=== PATIENT | male | born 1965 | race Caucasian/White ===

== ENCOUNTER 2017-04-29 13:16 | Inpatient (IN) | payer MEDICAID, MEDICARE, OTHER, SELFPAY ==
[~2017-04-29] VITALS: Ht 170.2 cm; Wt 64.0 kg
[~2017-04-29 13:16] MED LIST: DIVA250T45 PO; DIVA500T52 PO; OLAN15TA2 PO; PARO20TA24 PO; PHENL PO; TRIH5TAB2 PO
[2017-04-29 14:06] LABS: BASOPHILS % (AUTO) 0.4 % (0.0-2.0); EOSINOPHILS % (AUTO) 2.3 % (1.0-6.0); HEMATOCRIT 40.5 % (41-53); LYMPHOCYTES # (AUTO) 1.1 K/uL (1.0-4.8); LYMPHOCYTES % (AUTO) 19.5 % (22.0-44.0); MEAN CORPUSCULAR HEMOGLOBIN 32.4 pg (26.0-34.0); MEAN CORPUSCULAR HGB CONC 34.6 G/dL (31.0-37.0); MEAN CORPUSCULAR VOLUME 94 fL (80-100); MONOCYTES # (AUTO) 0.4 K/uL (0.1-1.0); MONOCYTES % (AUTO) 6.7 % (2.0-9.0); NEUTROPHILS % (AUTO) 71.1 % (40.0-70.0); PLATELET COUNT (AUTO) 223 K/uL (150-450); RED BLOOD CELL COUNT(AUTO) 4.33 MIL/uL (4.50-5.90); RED CELL DISTRIBUTION WIDTH 13.6 % (11.5-14.5); WHITE BLOOD COUNT (AUTO) 5.6 K/uL (4.5-11.0)
[2017-04-29 14:16] LABS: ANION GAP 9 mmol/L (8-16); CALCIUM, TOTAL 8.7 mg/dL (8.8-10.5); CARBON DIOXIDE 26 mmol/L (22-29); CHLORIDE 107 mmol/L (98-107); CREATININE 0.86 mg/dL (0.60-1.30); GLOMERULAR FILTR. RATE CALC > 60 mL/min (>60); POTASSIUM 3.9 mmol/L (3.5-5.1); SODIUM SERUM 142 mmol/L (136-145); UREA NITROGEN, BLOOD 18 mg/dL (7-18)
[2017-04-29 14:24] LABS: ALANINE AMINOTRANSFERASE 41 U/L (12-78); ALBUMIN 3.3 g/dL (3.4-5.0); ASPARTATE AMINOTRANSFERASE 26 U/L (15-37); BILIRUBIN,TOTAL 0.3 mg/dL (0.1-1.0); TOTAL PROTEIN, SERUM 6.8 g/dL (6.4-8.2)
[2017-04-29] MEDS ORDERED: OLANZapine 5 MG TABLET PO ONE (17:00)
[2017-04-29] MEDS ORDERED: LORazepam 2 MG TABLET PO ONE (17:00)
[2017-04-29] MEDS ORDERED: ZOLPIDEM TARTRATE 10 MG TABLET PO PRN (17:15)
[2017-04-29 18:19] LABS: CHOL/HDL RATIO 3.7 (4.2-7.3)
[2017-04-29] MEDS ORDERED: PNEUMOCOCCAL VACCINE POLYVALENT 0.5 ML VIAL [PPSV23] IM ONE (19:00)
[2017-04-29 19:29] VITALS: BP 108/79
[2017-04-29] MEDS: TraZODone HCL 100 MG TABLET PO SCH (20:24)
[2017-04-29] MEDS: OLANZapine 10 MG TABLET PO SCH (20:26)
[2017-04-29] MEDS: DIVALPROEX SODIUM 250 MG ER TABLET PO SCH (20:27)
[2017-04-30 08:05] VITALS: BP 98/65
[2017-04-30] MEDS: PARoxetine HCL 20 MG TABLET PO SCH (08:12)
[2017-04-30] MEDS: LORazepam 2 MG TABLET PO PRN (10:51)
[2017-04-30 16:15] VITALS: BP 106/68
[2017-04-30] MEDS: OLANZapine 10 MG TABLET PO SCH (20:34)
[2017-04-30] MEDS: TraZODone HCL 100 MG TABLET PO SCH (20:34)
[2017-04-30] MEDS: DIVALPROEX SODIUM 250 MG ER TABLET PO SCH (20:34)
[2017-05-01 08:05] VITALS: BP 106/67
[2017-05-01] MEDS: PARoxetine HCL 20 MG TABLET PO SCH (08:06)
[2017-05-01] MEDS: LORazepam 2 MG TABLET PO PRN ×2 (09:32→16:07)
[2017-05-01] MEDS: GEMFIBROZIL 600 MG TABLET PO SCH (16:07)
[2017-05-01 16:15] VITALS: BP 107/73
[2017-05-01] MEDS: OLANZapine 10 MG TABLET PO SCH (20:08)
[2017-05-01] MEDS: TraZODone HCL 100 MG TABLET PO SCH (20:08)
[2017-05-01] MEDS: DIVALPROEX SODIUM 250 MG ER TABLET PO SCH (20:09)
[2017-05-02 09:00] VITALS: BP 103/70
[2017-05-02] MEDS: CHOLECALCIFEROL (VIT D3) 1,000 UNITS TABLET PO SCH (09:18)
[2017-05-02] MEDS: PARoxetine HCL 20 MG TABLET PO SCH (09:18)
[2017-05-02] MEDS: GEMFIBROZIL 600 MG TABLET PO SCH ×2 (09:19→16:06)
[2017-05-02] MEDS: HALOPERIDOL 5 MG TABLET PO PRN (09:19)
[2017-05-02] MEDS: LORazepam 2 MG TABLET PO PRN ×2 (09:58→16:21)
[2017-05-02 16:15] VITALS: BP 114/60
[2017-05-02] MEDS: DIVALPROEX SODIUM 250 MG ER TABLET PO SCH (20:09)
[2017-05-02] MEDS: OLANZapine 10 MG TABLET PO SCH (20:09)
[2017-05-02] MEDS: TraZODone HCL 100 MG TABLET PO SCH (20:10)
[2017-05-03] MEDS: HALOPERIDOL 5 MG TABLET PO PRN ×2 (09:26→13:30)
[2017-05-03] MEDS: GEMFIBROZIL 600 MG TABLET PO SCH ×2 (09:26→17:37)
[2017-05-03] MEDS: PARoxetine HCL 20 MG TABLET PO SCH (09:26)
[2017-05-03] MEDS: LORazepam 2 MG TABLET PO PRN ×2 (09:26→13:29)
[2017-05-03] MEDS: CHOLECALCIFEROL (VIT D3) 1,000 UNITS TABLET PO SCH (09:26)
[2017-05-03 09:42] VITALS: BP 103/73
[2017-05-03 16:00] VITALS: BP 110/70
[2017-05-03] MEDS: OLANZapine 10 MG TABLET PO SCH (20:57)
[2017-05-03] MEDS: TraZODone HCL 100 MG TABLET PO SCH (20:58)
[2017-05-03] MEDS: DIVALPROEX SODIUM 250 MG ER TABLET PO SCH (20:58)
[2017-05-04] MEDS: PARoxetine HCL 20 MG TABLET PO SCH (09:53)
[2017-05-04] MEDS: LORazepam 2 MG TABLET PO PRN ×2 (09:53→15:36)
[2017-05-04] MEDS: CHOLECALCIFEROL (VIT D3) 1,000 UNITS TABLET PO SCH (09:53)
[2017-05-04] MEDS: HALOPERIDOL 5 MG TABLET PO PRN ×2 (09:53→15:36)
[2017-05-04] MEDS: GEMFIBROZIL 600 MG TABLET PO SCH ×2 (09:53→16:27)
[2017-05-04 11:31] VITALS: BP 110/72
[2017-05-04 17:19] VITALS: BP 108/75
[2017-05-04] MEDS: DIVALPROEX SODIUM 250 MG ER TABLET PO SCH (20:02)
[2017-05-04] MEDS: TraZODone HCL 100 MG TABLET PO SCH (20:02)
[2017-05-04] MEDS: OLANZapine 10 MG TABLET PO SCH (20:03)
[2017-05-05 08:00] VITALS: BP 102/74
[2017-05-05] MEDS: LORazepam 2 MG TABLET PO PRN ×2 (08:08→14:09)
[2017-05-05] MEDS: PARoxetine HCL 20 MG TABLET PO SCH (08:08)
[2017-05-05] MEDS: CHOLECALCIFEROL (VIT D3) 1,000 UNITS TABLET PO SCH (08:08)
[2017-05-05] MEDS: GEMFIBROZIL 600 MG TABLET PO SCH ×2 (08:08→16:48)
[2017-05-05] MEDS: HALOPERIDOL 5 MG TABLET PO PRN (14:09)
[2017-05-05] MEDS ORDERED: OLAN10TA3 PO (14:15)
[2017-05-05] MEDS ORDERED: TRAZ-147 PO (14:18)
[2017-05-05] MEDS ORDERED: GEMF600T3 PO (14:20)
[2017-05-05] MEDS ORDERED: VITAD1000 PO (14:20)
== END 2017-05-05 17:05 | disposition home or self-care (01) | DRG 885 ==
LOC: EMS 13:18 → 3EX 18:09
DX: F25.1 Schizoaffective disorder, depressive type (principal); R45.851 Suicidal ideations; G40.909 Epilepsy, unspecified, not intractable, without status epilepticus; E78.00 Pure hypercholesterolemia, unspecified; J44.9 Chronic obstructive pulmonary disease, unspecified; E78.5 Hyperlipidemia, unspecified; I10 Essential (primary) hypertension; G62.9 Polyneuropathy, unspecified; F17.210 Nicotine dependence, cigarettes, uncomplicated; E78.1 Pure hyperglyceridemia; K21.9 Gastro-esophageal reflux disease without esophagitis; B19.20 Unspecified viral hepatitis C without hepatic coma; Z88.2 Allergy status to sulfonamides; Z88.8 Allergy status to other drugs, medicaments and biological substances; Z91.013 Allergy to seafood; Z91.5 Personal history of self-harm; Z28.21 Immunization not carried out because of patient refusal
CPT/HCPCS: 99285; G0480

== ENCOUNTER 2017-10-04 19:59 | Inpatient (IN) | payer MEDICARE, OTHER ==
[~2017-10-04] VITALS: Ht 170.2 cm; Wt 60.3 kg
[~2017-10-04 19:59] MED LIST changes: +GEMF600T3 PO; +OLAN10TA3 PO; -OLAN15TA2 PO; -PHENL PO; +TRAZ-147 PO; -TRIH5TAB2 PO; +VITAD1000 PO
[2017-10-04] MEDS ORDERED: ATOR20TA86 PO (20:40)
[2017-10-04] MEDS ORDERED: PHENY100 PO (20:40)
[2017-10-04] MEDS ORDERED: OLAN7.5T2 PO (20:40)
[2017-10-04] MEDS ORDERED: GABA-529 PO (20:40)
[2017-10-04] MEDS ORDERED: PANT40TA25 PO (20:40)
[2017-10-04] MEDS ORDERED: DIPH25 PO (20:40)
[2017-10-04] MEDS ORDERED: ACYC200C PO (20:40)
[2017-10-04] MEDS ORDERED: OXYC-530 PO (20:40)
[2017-10-04 20:58] LABS: BASOPHILS % (AUTO) 0.8 % (0.0-2.0); EOSINOPHILS % (AUTO) 4.7 % (1.0-6.0); HEMATOCRIT 43.4 % (41-53); HEMOGLOBIN 14.8 g/dL (13.5-17.5); LYMPHOCYTES # (AUTO) 1.4 K/uL (1.0-4.8); LYMPHOCYTES % (AUTO) 29.2 % (22.0-44.0); MEAN CORPUSCULAR HEMOGLOBIN 31.8 pg (26.0-34.0); MEAN CORPUSCULAR HGB CONC 34.1 G/dL (31.0-37.0); MEAN CORPUSCULAR VOLUME 93 fL (80-100); MONOCYTES # (AUTO) 0.4 K/uL (0.1-1.0); MONOCYTES % (AUTO) 9.4 % (2.0-9.0); NEUTROPHILS # (AUTO) 2.6 K/uL (1.8-7.7); NEUTROPHILS % (AUTO) 55.9 % (40.0-70.0); PLATELET COUNT (AUTO) 259 K/uL (150-450); RED BLOOD CELL COUNT(AUTO) 4.65 MIL/uL (4.50-5.90); RED CELL DISTRIBUTION WIDTH 13.3 % (11.5-14.5)
[2017-10-04 21:12] LABS: ALANINE AMINOTRANSFERASE 50 U/L (12-78); ALBUMIN 3.6 g/dL (3.4-5.0); ALKALINE PHOSPHATASE 102 U/L (46-116); ANION GAP 10 mmol/L (8-16); ASPARTATE AMINOTRANSFERASE 45 U/L (15-37); BILIRUBIN,TOTAL 0.2 mg/dL (0.1-1.0); CALCIUM, TOTAL 9.1 mg/dL (8.8-10.5); CARBON DIOXIDE 26 mmol/L (22-29); CHLORIDE 106 mmol/L (98-107); CREATININE 0.98 mg/dL (0.60-1.30); GLOMERULAR FILTR. RATE CALC > 60 mL/min (>60); GLUCOSE,RANDOM 84 mg/dL (70-110); POTASSIUM 3.5 mmol/L (3.5-5.1); SODIUM SERUM 142 mmol/L (136-145)
[2017-10-04 21:27] LABS: UREA NITROGEN, BLOOD 25 mg/dL (7-18)
[2017-10-04 21:28] LABS: VALPROIC ACID < 3 mcg/mL (50-100)
[2017-10-04 21:49] LABS: AMPHET/METH SCREEN,URINE NEGATIVE (NEGATIVE); BARBITURATE SCREEN, URINE NEGATIVE (NEGATIVE); BENZODIAZEPINES SCREEN,URINE NEGATIVE (NEGATIVE); CANNABINOID SCREEN,URINE NEGATIVE (NEGATIVE); COCAINE SCREEN,URINE NEGATIVE (NEGATIVE); METHADONE SCREEN, URINE NEGATIVE (NEGATIVE); OPIATE SCREEN,URINE NEGATIVE (NEGATIVE)
[2017-10-04 21:50] LABS: PHENCYCLIDINE SCREEN,URINE NEGATIVE (NEGATIVE)
[2017-10-05] MEDS ORDERED: LORazepam 2 MG TABLET PO PRN (01:00)
[2017-10-05] MEDS ORDERED: ZOLPIDEM TARTRATE 10 MG TABLET PO PRN (01:00)
[2017-10-05] MEDS ORDERED: HALOPERIDOL 5 MG TABLET PO PRN (01:00)
[2017-10-05] MEDS ORDERED: BACITRACIN 0.9 GM PACKET OINTMENT TP ONE (01:00)
[2017-10-05 04:16] VITALS: BP 115/68
[2017-10-05] MEDS ORDERED: PNEUMOCOCCAL VACCINE POLYVALENT 0.5 ML VIAL [PPSV23] IM ONE (04:30)
[2017-10-05] MEDS ORDERED: INFLUENZA VIRUS VACCINE QVS 2017-18 (3YR+)/PF 60 MCG/0.5 ML SYRINGE IM ONE (04:30)
[2017-10-05 08:37] VITALS: BP 106/64
[2017-10-05 08:40] LABS: FREE T4 (FREE THYROXINE) 0.68 ng/dL (0.76-1.46); THYROID STIMULATING HORMONE 0.42 uIU/mL (0.36-3.74)
[2017-10-05] MEDS: PARoxetine HCL 20 MG TABLET PO SCH (12:54)
[2017-10-05] MEDS: GABAPENTIN 300 MG CAPSULE PO SCH ×2 (12:54→16:24)
[2017-10-05] MEDS: BACITRACIN 28.4 GM OINTMENT TP SCH ×2 (14:52→16:25)
[2017-10-05] MEDS ORDERED: ONDANSETRON HCL 4 MG TABLET PO PRN (15:30)
[2017-10-05] MEDS ORDERED: IBUPROFEN 600 MG TABLET PO PRN (15:30)
[2017-10-05] MEDS ORDERED: MAGNESIUM HYDROXIDE SUSPENSION 30 ML UDCUP PO PRN (15:30)
[2017-10-05] MEDS ORDERED: MAG HYDROX/AL HYDROX/SIMETH ES 30 ML SUSPENSION UDCUP PO PRN (15:30)
[2017-10-05] MEDS ORDERED: LOPERAMIDE HCL 2 MG CAPSULE PO PRN (15:30)
[2017-10-05] MEDS ORDERED: CloNIDine HCL 0.1 MG TABLET PO PRN (15:30)
[2017-10-05] MEDS ORDERED: PETROLATUM,WHITE 71 GM JELLY TP PRN (15:30)
[2017-10-05] MEDS ORDERED: BENZOCAINE/MENTHOL LOZENGE MM PRN (15:30)
[2017-10-05] MEDS ORDERED: BACITRACIN 28.4 GM OINTMENT TP PRN (15:30)
[2017-10-05] MEDS ORDERED: ACETAMINOPHEN 325 MG TABLET PO PRN (15:30)
[2017-10-05 16:40] VITALS: BP 101/59
[2017-10-05] MEDS: OLANZapine 7.5 MG TABLET PO SCH (20:15)
[2017-10-05] MEDS: PHENYTOIN SODIUM 100 MG ER CAPSULE PO SCH (20:15)
[2017-10-05] MEDS: TraZODone HCL 100 MG TABLET PO SCH (20:15)
[2017-10-06 06:07] VITALS: BP 108/68
[2017-10-06 08:37] VITALS: BP 135/67
[2017-10-06] MEDS: OMEPRAZOLE 20 MG CAPSULE PO SCH (08:41)
[2017-10-06] MEDS: PARoxetine HCL 20 MG TABLET PO SCH (08:41)
[2017-10-06] MEDS: GABAPENTIN 300 MG CAPSULE PO SCH ×3 (08:41→16:38)
[2017-10-06] MEDS: DOCUSATE SODIUM 100 MG CAPSULE PO SCH (08:41)
[2017-10-06] MEDS: BACITRACIN 28.4 GM OINTMENT TP SCH ×2 (08:42→16:38)
[2017-10-06 11:21] LABS: CHOL/HDL RATIO 4.2 (4.2-7.3); PHENYTOIN (DILANTIN) 3.9 mcg/mL (10.0-20.0)
[2017-10-06 16:10] VITALS: BP 103/61
[2017-10-06] MEDS: OLANZapine 7.5 MG TABLET PO SCH (20:27)
[2017-10-06] MEDS: TraZODone HCL 100 MG TABLET PO SCH (20:28)
[2017-10-06] MEDS: PHENYTOIN SODIUM 100 MG ER CAPSULE PO SCH (20:28)
[2017-10-07 05:49] VITALS: BP 102/62
[2017-10-07] MEDS: DOCUSATE SODIUM 100 MG CAPSULE PO SCH (08:27)
[2017-10-07] MEDS: PARoxetine HCL 20 MG TABLET PO SCH (08:27)
[2017-10-07] MEDS: OMEPRAZOLE 20 MG CAPSULE PO SCH (08:27)
[2017-10-07] MEDS: GABAPENTIN 300 MG CAPSULE PO SCH ×3 (08:27→16:09)
[2017-10-07] MEDS: BACITRACIN 28.4 GM OINTMENT TP SCH ×2 (08:28→16:09)
[2017-10-07 09:27] VITALS: BP 99/62
[2017-10-07 16:05] VITALS: BP 100/70
[2017-10-07 19:09] VITALS: BP 100/70
[2017-10-07] MEDS: TraZODone HCL 100 MG TABLET PO SCH (20:05)
[2017-10-07] MEDS: OLANZapine 7.5 MG TABLET PO SCH (20:05)
[2017-10-07] MEDS: SIMVASTATIN 10 MG TABLET PO SCH (20:05)
[2017-10-07] MEDS: PHENYTOIN SODIUM 100 MG ER CAPSULE PO SCH (20:05)
[2017-10-08 01:02] VITALS: BP 106/65
[2017-10-08 08:14] VITALS: BP 101/63
[2017-10-08] MEDS: PARoxetine HCL 20 MG TABLET PO SCH (08:20)
[2017-10-08] MEDS: GABAPENTIN 300 MG CAPSULE PO SCH ×3 (08:20→16:31)
[2017-10-08] MEDS: OMEPRAZOLE 20 MG CAPSULE PO SCH (08:20)
[2017-10-08] MEDS: BACITRACIN 28.4 GM OINTMENT TP SCH ×2 (08:20→16:31)
[2017-10-08] MEDS: DOCUSATE SODIUM 100 MG CAPSULE PO SCH (08:20)
[2017-10-08 16:40] VITALS: BP 99/64
[2017-10-08] MEDS: SIMVASTATIN 10 MG TABLET PO SCH (20:17)
[2017-10-08] MEDS: PHENYTOIN SODIUM 100 MG ER CAPSULE PO SCH (20:17)
[2017-10-08] MEDS: TraZODone HCL 100 MG TABLET PO SCH (20:17)
[2017-10-08] MEDS: OLANZapine 7.5 MG TABLET PO SCH (20:18)
[2017-10-09 06:16] VITALS: BP 100/65
[2017-10-09 08:38] VITALS: BP 100/69
[2017-10-09] MEDS: PARoxetine HCL 20 MG TABLET PO SCH (08:48)
[2017-10-09] MEDS: GABAPENTIN 300 MG CAPSULE PO SCH ×3 (08:48→16:14)
[2017-10-09] MEDS: OMEPRAZOLE 20 MG CAPSULE PO SCH (08:48)
[2017-10-09] MEDS: DOCUSATE SODIUM 100 MG CAPSULE PO SCH (08:48)
[2017-10-09] MEDS: BACITRACIN 28.4 GM OINTMENT TP SCH ×2 (08:48→16:14)
[2017-10-09 16:19] VITALS: BP 104/67
[2017-10-09] MEDS: TraZODone HCL 100 MG TABLET PO SCH (20:12)
[2017-10-09] MEDS: OLANZapine 7.5 MG TABLET PO SCH (20:12)
[2017-10-09] MEDS: SIMVASTATIN 10 MG TABLET PO SCH (20:12)
[2017-10-09] MEDS: PHENYTOIN SODIUM 100 MG ER CAPSULE PO SCH (20:12)
[2017-10-10 06:37] VITALS: BP 102/64
[2017-10-10 08:35] VITALS: BP 104/60
[2017-10-10] MEDS: DOCUSATE SODIUM 100 MG CAPSULE PO SCH (09:02)
[2017-10-10] MEDS: GABAPENTIN 300 MG CAPSULE PO SCH ×3 (09:02→16:35)
[2017-10-10] MEDS: PARoxetine HCL 20 MG TABLET PO SCH (09:02)
[2017-10-10] MEDS: OMEPRAZOLE 20 MG CAPSULE PO SCH (09:02)
[2017-10-10] MEDS: BACITRACIN 28.4 GM OINTMENT TP SCH ×2 (09:03→16:34)
[2017-10-10 16:16] VITALS: BP 107/63
[2017-10-10] MEDS: TraZODone HCL 100 MG TABLET PO SCH (20:40)
[2017-10-10] MEDS: SIMVASTATIN 10 MG TABLET PO SCH (20:40)
[2017-10-10] MEDS: OLANZapine 7.5 MG TABLET PO SCH (20:41)
[2017-10-10] MEDS: PHENYTOIN SODIUM 100 MG ER CAPSULE PO SCH (20:41)
[2017-10-11 06:38] VITALS: BP 107/64
[2017-10-11 08:14] VITALS: BP 106/68
[2017-10-11] MEDS: DOCUSATE SODIUM 100 MG CAPSULE PO SCH (08:36)
[2017-10-11] MEDS: GABAPENTIN 300 MG CAPSULE PO SCH ×2 (08:36→12:49)
[2017-10-11] MEDS: OMEPRAZOLE 20 MG CAPSULE PO SCH (08:36)
[2017-10-11] MEDS: PARoxetine HCL 20 MG TABLET PO SCH (08:36)
[2017-10-11] MEDS: BACITRACIN 28.4 GM OINTMENT TP SCH (08:37)
[2017-10-11] MEDS ORDERED: DSS100 PO (12:04)
[2017-10-11] MEDS ORDERED: PHEN100C23 PO (12:04)
[2017-10-11] MEDS ORDERED: SIMV-259 PO (12:04)
[2017-10-11] MEDS ORDERED: TRAZ-147 PO (12:04)
[2017-10-11] MEDS ORDERED: OMEP20 PO (12:05)
== END 2017-10-11 13:55 | disposition home or self-care (01) | DRG 885 ==
LOC: EMS 20:02 → B2X 10-05 01:27
DX: F25.1 Schizoaffective disorder, depressive type (principal); R45.851 Suicidal ideations; G62.9 Polyneuropathy, unspecified; W19.XXXA Unspecified fall, initial encounter; G40.909 Epilepsy, unspecified, not intractable, without status epilepticus; E78.00 Pure hypercholesterolemia, unspecified; E78.5 Hyperlipidemia, unspecified; J44.9 Chronic obstructive pulmonary disease, unspecified; K21.9 Gastro-esophageal reflux disease without esophagitis; S80.211A Abrasion, right knee, initial encounter; Z87.891 Personal history of nicotine dependence; Z91.5 Personal history of self-harm; Z88.2 Allergy status to sulfonamides; Z88.8 Allergy status to other drugs, medicaments and biological substances; E55.9 Vitamin D deficiency, unspecified; B19.20 Unspecified viral hepatitis C without hepatic coma; Z91.013 Allergy to seafood; Z28.21 Immunization not carried out because of patient refusal
CPT/HCPCS: 82306; 84439; 84443; 99285; G0480

== ENCOUNTER 2017-10-22 16:01 | Emergency (ER) | payer MEDICARE, OTHER, SELFPAY ==
[~2017-10-22] VITALS: Ht 170.2 cm; Wt 65.9 kg
[~2017-10-22 16:01] MED LIST changes: -DIVA250T45 PO; -DIVA500T52 PO; +DSS100 PO; +GABA-529 PO; -GEMF600T3 PO; -OLAN10TA3 PO; +OLAN7.5T2 PO; +OMEP20 PO; +PHEN100C23 PO; +SIMV-259 PO; -VITAD1000 PO
[2017-10-22 16:33] LABS: AMPHET/METH SCREEN,URINE NEGATIVE (NEGATIVE); BARBITURATE SCREEN, URINE NEGATIVE (NEGATIVE); BENZODIAZEPINES SCREEN,URINE NEGATIVE (NEGATIVE); CANNABINOID SCREEN,URINE NEGATIVE (NEGATIVE); COCAINE SCREEN,URINE NEGATIVE (NEGATIVE); METHADONE SCREEN, URINE NEGATIVE (NEGATIVE); OPIATE SCREEN,URINE NEGATIVE (NEGATIVE); PHENCYCLIDINE SCREEN,URINE NEGATIVE (NEGATIVE)
[2017-10-22 16:51] LABS: BASOPHILS # (AUTO) 0.03 K/uL (0.00-0.20); EOSINOPHILS # (AUTO) 0.21 K/uL (0.00-0.70); EOSINOPHILS % (AUTO) 7.09 % (1.0-6.0); HEMATOCRIT 40.9 % (41-53); HEMOGLOBIN 13.8 g/dL (13.5-17.5); LYMPHOCYTES % (AUTO) 32.2 % (22.0-44.0); MEAN CORPUSCULAR HGB CONC 33.8 G/dL (31.0-37.0); MEAN CORPUSCULAR VOLUME 94 fL (80-100); MONOCYTES # (AUTO) 0.3 K/uL (0.1-1.0); MONOCYTES % (AUTO) 10.4 % (2.0-9.0); NEUTROPHILS # (AUTO) 1.5 K/uL (1.8-7.7); NEUTROPHILS % (AUTO) 49.4 % (40.0-70.0); PLATELET COUNT (AUTO) 242 K/uL (150-450); RED BLOOD CELL COUNT(AUTO) 4.33 MIL/uL (4.50-5.90)
[2017-10-22 17:00] LABS: ANION GAP 9 mmol/L (8-16); CARBON DIOXIDE 25 mmol/L (22-29); CHLORIDE 108 mmol/L (98-107); CREATININE 1.06 mg/dL (0.60-1.30); GLOMERULAR FILTR. RATE CALC > 60 mL/min (>60); GLUCOSE,RANDOM 99 mg/dL (70-110); POTASSIUM 3.6 mmol/L (3.5-5.1); SODIUM SERUM 142 mmol/L (136-145); UREA NITROGEN, BLOOD 14 mg/dL (7-18)
[2017-10-22 17:06] LABS: ALANINE AMINOTRANSFERASE 37 U/L (12-78); ALBUMIN 3.4 g/dL (3.4-5.0); ALKALINE PHOSPHATASE 99 U/L (46-116); ASPARTATE AMINOTRANSFERASE 25 U/L (15-37); BILIRUBIN,TOTAL 0.1 mg/dL (0.1-1.0); TOTAL PROTEIN, SERUM 7.1 g/dL (6.4-8.2)
[2017-10-22] MEDS ORDERED: OLANZapine 5 MG TABLET PO ONE (20:00)
[2017-10-22 20:52] VITALS: BP 122/73
== END 2017-10-22 20:55 | disposition home or self-care (01) ==
LOC: EMS 16:03
DX: F25.9 Schizoaffective disorder, unspecified (principal); R45.851 Suicidal ideations; J44.9 Chronic obstructive pulmonary disease, unspecified; E78.00 Pure hypercholesterolemia, unspecified; F17.210 Nicotine dependence, cigarettes, uncomplicated; Z98.890 Other specified postprocedural states; Z91.013 Allergy to seafood; Z88.8 Allergy status to other drugs, medicaments and biological substances; Z88.2 Allergy status to sulfonamides; Z79.899 Other long term (current) drug therapy
CPT/HCPCS: 36415; 80053; 80307; 85025; 99284; G0480

== ENCOUNTER 2017-11-19 12:42 | Inpatient (IN) | payer MEDICARE, OTHER, SELFPAY ==
[~2017-11-19] VITALS: Ht 170.2 cm; Wt 61.7 kg
[2017-11-19] MEDS ORDERED: DIVA250T25 PO (13:29)
[2017-11-19 14:01] LABS: AMPHET/METH SCREEN,URINE POSITIVE (NEGATIVE); BARBITURATE SCREEN, URINE NEGATIVE (NEGATIVE); BENZODIAZEPINES SCREEN,URINE NEGATIVE (NEGATIVE); CANNABINOID SCREEN,URINE NEGATIVE (NEGATIVE); COCAINE SCREEN,URINE NEGATIVE (NEGATIVE); METHADONE SCREEN, URINE NEGATIVE (NEGATIVE); OPIATE SCREEN,URINE NEGATIVE (NEGATIVE)
[2017-11-19 14:02] LABS: PHENCYCLIDINE SCREEN,URINE NEGATIVE (NEGATIVE)
[2017-11-19 14:03] LABS: BASOPHILS % (AUTO) 0.7 % (0.0-2.0); EOSINOPHILS % (AUTO) 7.6 % (1.0-6.0); HEMOGLOBIN 14.7 g/dL (13.5-17.5); LYMPHOCYTES # (AUTO) 0.9 K/uL (1.0-4.8); MEAN CORPUSCULAR HEMOGLOBIN 31.5 pg (26.0-34.0); MEAN CORPUSCULAR HGB CONC 34.2 G/dL (31.0-37.0); MEAN CORPUSCULAR VOLUME 92 fL (80-100); MONOCYTES # (AUTO) 0.5 K/uL (0.1-1.0); MONOCYTES % (AUTO) 8.8 % (2.0-9.0); NEUTROPHILS # (AUTO) 3.6 K/uL (1.8-7.7); NEUTROPHILS % (AUTO) 65.9 % (40.0-70.0); PLATELET COUNT (AUTO) 199 K/uL (150-450); RED BLOOD CELL COUNT(AUTO) 4.66 MIL/uL (4.50-5.90)
[2017-11-19 14:15] LABS: ANION GAP 10 mmol/L (8-16); CALCIUM, TOTAL 9.1 mg/dL (8.8-10.5); CARBON DIOXIDE 28 mmol/L (22-29); CHLORIDE 106 mmol/L (98-107); CREATININE 1.01 mg/dL (0.60-1.30); GLOMERULAR FILTR. RATE CALC > 60 mL/min (>60); GLUCOSE,RANDOM 84 mg/dL (70-110); POTASSIUM 3.3 mmol/L (3.5-5.1); SODIUM SERUM 144 mmol/L (136-145); UREA NITROGEN, BLOOD 20 mg/dL (7-18)
[2017-11-19 14:21] LABS: ALANINE AMINOTRANSFERASE 47 U/L (12-78); ALBUMIN 3.7 g/dL (3.4-5.0); ALKALINE PHOSPHATASE 99 U/L (46-116); ASPARTATE AMINOTRANSFERASE 31 U/L (15-37); BILIRUBIN,TOTAL 0.3 mg/dL (0.1-1.0); TOTAL PROTEIN, SERUM 7.3 g/dL (6.4-8.2)
[2017-11-19] MEDS ORDERED: LORazepam 2 MG TABLET PO PRN (15:15)
[2017-11-19] MEDS ORDERED: HALOPERIDOL 5 MG TABLET PO PRN (15:15)
[2017-11-19] MEDS ORDERED: ZOLPIDEM TARTRATE 10 MG TABLET PO PRN (15:15)
[2017-11-19 18:17] VITALS: BP 133/68
[2017-11-19] MEDS ORDERED: POTASSIUM CHLORIDE 20 MEQ ER TABLET PO ONE (18:45)
[2017-11-19] MEDS: GABAPENTIN 300 MG CAPSULE PO SCH (18:50)
[2017-11-19] MEDS ORDERED: INFLUENZA VIRUS VACCINE QVS 2017-18 (3YR+)/PF 60 MCG/0.5 ML SYRINGE IM ONE (19:15)
[2017-11-19] MEDS ORDERED: -PHARMACY VACCINE NOTE- MISC ONE (19:15)
[2017-11-19] MEDS ORDERED: DiphenhydrAMINE HCL 25 MG CAPSULE PO ONE (19:54)
[2017-11-19] MEDS: PHENYTOIN SODIUM 100 MG ER CAPSULE PO SCH (20:53)
[2017-11-19] MEDS: SIMVASTATIN 10 MG TABLET PO SCH (20:54)
[2017-11-19] MEDS: OLANZapine 7.5 MG TABLET PO SCH (20:54)
[2017-11-19] MEDS: TraZODone HCL 100 MG TABLET PO SCH (20:54)
[2017-11-20 01:29] VITALS: BP 101/62
[2017-11-20 08:20] LABS: FREE T4 (FREE THYROXINE) 0.58 ng/dL (0.76-1.46); PHENYTOIN (DILANTIN) 17.2 mcg/mL (10.0-20.0); THYROID STIMULATING HORMONE 1.85 uIU/mL (0.36-3.74)
[2017-11-20 08:30] VITALS: BP 101/68
[2017-11-20] MEDS: OMEPRAZOLE 20 MG CAPSULE PO SCH (08:42)
[2017-11-20] MEDS: GABAPENTIN 300 MG CAPSULE PO SCH ×3 (08:42→16:02)
[2017-11-20] MEDS: PARoxetine HCL 20 MG TABLET PO SCH (08:42)
[2017-11-20 16:15] VITALS: BP 107/61
[2017-11-20] MEDS: PHENYTOIN SODIUM 100 MG ER CAPSULE PO SCH (20:15)
[2017-11-20] MEDS: OLANZapine 7.5 MG TABLET PO SCH (20:16)
[2017-11-20] MEDS: TraZODone HCL 100 MG TABLET PO SCH (20:16)
[2017-11-20] MEDS: SIMVASTATIN 10 MG TABLET PO SCH (20:16)
[2017-11-21 00:37] VITALS: BP 100/65
[2017-11-21 08:02] VITALS: BP 113/75
[2017-11-21] MEDS: GABAPENTIN 300 MG CAPSULE PO SCH ×3 (08:30→16:56)
[2017-11-21] MEDS: PARoxetine HCL 20 MG TABLET PO SCH (08:31)
[2017-11-21] MEDS: OMEPRAZOLE 20 MG CAPSULE PO SCH (08:31)
[2017-11-21] MEDS ORDERED: MAG HYDROX/AL HYDROX/SIMETH ES 30 ML SUSPENSION UDCUP PO PRN (09:45)
[2017-11-21] MEDS ORDERED: IBUPROFEN 600 MG TABLET PO PRN (09:45)
[2017-11-21] MEDS ORDERED: ACETAMINOPHEN 325 MG TABLET PO PRN (09:45)
[2017-11-21] MEDS ORDERED: CloNIDine HCL 0.1 MG TABLET PO PRN (09:45)
[2017-11-21] MEDS ORDERED: MAGNESIUM HYDROXIDE SUSPENSION 30 ML UDCUP PO PRN (09:45)
[2017-11-21] MEDS ORDERED: ONDANSETRON HCL 4 MG TABLET PO PRN (09:45)
[2017-11-21] MEDS ORDERED: BENZOCAINE/MENTHOL LOZENGE MM PRN (09:45)
[2017-11-21] MEDS ORDERED: BACITRACIN 28.4 GM OINTMENT TP PRN (09:45)
[2017-11-21] MEDS ORDERED: PETROLATUM,WHITE 71 GM JELLY TP PRN (09:45)
[2017-11-21] MEDS ORDERED: LOPERAMIDE HCL 2 MG CAPSULE PO PRN (09:45)
[2017-11-21 16:44] VITALS: BP 115/68
[2017-11-21] MEDS: TraZODone HCL 100 MG TABLET PO SCH (20:32)
[2017-11-21] MEDS: PHENYTOIN SODIUM 100 MG ER CAPSULE PO SCH (20:32)
[2017-11-21] MEDS: SIMVASTATIN 10 MG TABLET PO SCH (20:32)
[2017-11-21] MEDS: OLANZapine 7.5 MG TABLET PO SCH (20:32)
[2017-11-22 01:12] VITALS: BP 100/60
[2017-11-22 08:15] VITALS: BP 113/75
[2017-11-22] MEDS: OMEPRAZOLE 20 MG CAPSULE PO SCH (08:43)
[2017-11-22] MEDS: PARoxetine HCL 20 MG TABLET PO SCH (08:43)
[2017-11-22] MEDS: GABAPENTIN 300 MG CAPSULE PO SCH ×3 (08:43→16:45)
[2017-11-22 16:02] VITALS: BP 135/79
[2017-11-22] MEDS: SIMVASTATIN 10 MG TABLET PO SCH (20:36)
[2017-11-22] MEDS: OLANZapine 7.5 MG TABLET PO SCH (20:36)
[2017-11-22] MEDS: PHENYTOIN SODIUM 100 MG ER CAPSULE PO SCH (20:36)
[2017-11-22] MEDS: TraZODone HCL 100 MG TABLET PO SCH (20:36)
[2017-11-23 00:15] VITALS: BP 101/62
[2017-11-23 08:09] VITALS: BP 106/71
[2017-11-23] MEDS: OMEPRAZOLE 20 MG CAPSULE PO SCH (08:15)
[2017-11-23] MEDS: PARoxetine HCL 20 MG TABLET PO SCH (08:15)
[2017-11-23] MEDS: GABAPENTIN 300 MG CAPSULE PO SCH ×3 (08:15→16:16)
[2017-11-23 16:33] VITALS: BP 110/68
[2017-11-23] MEDS: PHENYTOIN SODIUM 100 MG ER CAPSULE PO SCH (20:23)
[2017-11-23] MEDS: SIMVASTATIN 10 MG TABLET PO SCH (20:23)
[2017-11-23] MEDS: TraZODone HCL 100 MG TABLET PO SCH (20:24)
[2017-11-23] MEDS: OLANZapine 7.5 MG TABLET PO SCH (20:24)
[2017-11-24 01:13] VITALS: BP 113/63
[2017-11-24 08:30] VITALS: BP 104/67
[2017-11-24] MEDS: OMEPRAZOLE 20 MG CAPSULE PO SCH (08:56)
[2017-11-24] MEDS: PARoxetine HCL 20 MG TABLET PO SCH (08:56)
[2017-11-24] MEDS: GABAPENTIN 300 MG CAPSULE PO SCH ×3 (08:56→16:20)
[2017-11-24 16:07] VITALS: BP 124/74
[2017-11-24] MEDS: TraZODone HCL 100 MG TABLET PO SCH (20:18)
[2017-11-24] MEDS: OLANZapine 7.5 MG TABLET PO SCH (20:18)
[2017-11-24] MEDS: SIMVASTATIN 10 MG TABLET PO SCH (20:18)
[2017-11-24] MEDS: PHENYTOIN SODIUM 100 MG ER CAPSULE PO SCH (20:18)
[2017-11-25 01:00] VITALS: BP 102/68
[2017-11-25] MEDS ORDERED: PARO20TA24 PO (08:01)
[2017-11-25 08:13] VITALS: BP 107/71
[2017-11-25] MEDS: OMEPRAZOLE 20 MG CAPSULE PO SCH (08:45)
[2017-11-25] MEDS: PARoxetine HCL 20 MG TABLET PO SCH (08:45)
[2017-11-25] MEDS: GABAPENTIN 300 MG CAPSULE PO SCH (08:45)
== END 2017-11-25 10:25 | disposition home or self-care (01) | DRG 885 ==
LOC: EMS 12:44 → B2X 15:30 → B2S 11-23 08:41
PROC: 3E0234Z Introduction of Serum, Toxoid and Vaccine into Muscle, Percutaneous Approach (ICD-10-PCS; principal; 2017-11-19)
DX: F25.1 Schizoaffective disorder, depressive type (principal); F15.20 Other stimulant dependence, uncomplicated; R45.851 Suicidal ideations; G40.909 Epilepsy, unspecified, not intractable, without status epilepticus; E78.00 Pure hypercholesterolemia, unspecified; E78.5 Hyperlipidemia, unspecified; E87.6 Hypokalemia; F17.200 Nicotine dependence, unspecified, uncomplicated; J44.9 Chronic obstructive pulmonary disease, unspecified; E55.9 Vitamin D deficiency, unspecified; B18.2 Chronic viral hepatitis C; R26.9 Unspecified abnormalities of gait and mobility; K21.9 Gastro-esophageal reflux disease without esophagitis; M19.90 Unspecified osteoarthritis, unspecified site; Z79.899 Other long term (current) drug therapy; Z91.14 Patient's other noncompliance with medication regimen; Z91.013 Allergy to seafood; Z88.2 Allergy status to sulfonamides; Z59.0 Homelessness; Z23 Encounter for immunization
CPT/HCPCS: 84132; 84439; 84443; 99285; G0480

== ENCOUNTER 2018-04-19 14:44 | Inpatient (IN) | payer OTHER, SELFPAY ==
[~2018-04-19] VITALS: Ht 170.2 cm; Wt 60.0 kg
[~2018-04-19 14:44] MED LIST changes: -DSS100 PO; -OMEP20 PO; -TRAZ-147 PO; +TRAZ-220 PO
[2018-04-19 15:50] LABS: HEMOGLOBIN 14.4 g/dL (13.5-17.5); LYMPHOCYTES # (AUTO) 1.3 K/uL (1.0-4.8); LYMPHOCYTES % (AUTO) 24.1 % (22.0-44.0); MEAN CORPUSCULAR HEMOGLOBIN 32.5 pg (26.0-34.0); MEAN CORPUSCULAR HGB CONC 34.3 G/dL (31.0-37.0); MEAN CORPUSCULAR VOLUME 95 fL (80-100); MONOCYTES # (AUTO) 0.5 K/uL (0.1-1.0); MONOCYTES % (AUTO) 9.9 % (2.0-9.0); NEUTROPHILS # (AUTO) 3.3 K/uL (1.8-7.7); PLATELET COUNT (AUTO) 214 K/uL (150-450); RED BLOOD CELL COUNT(AUTO) 4.43 MIL/uL (4.50-5.90); RED CELL DISTRIBUTION WIDTH 13.8 % (11.5-14.5)
[2018-04-19 16:01] LABS: ANION GAP 13 mmol/L (8-16); CALCIUM, TOTAL 8.2 mg/dL (8.8-10.5); CARBON DIOXIDE 17 mmol/L (22-29); CHLORIDE 109 mmol/L (98-107); CREATININE 1.17 mg/dL (0.60-1.30); GLOMERULAR FILTR. RATE CALC > 60 mL/min (>60); GLUCOSE,RANDOM 98 mg/dL (70-110); POTASSIUM 4.1 mmol/L (3.5-5.1); SODIUM SERUM 139 mmol/L (136-145); UREA NITROGEN, BLOOD 19 mg/dL (7-18)
[2018-04-19 16:07] LABS: ALANINE AMINOTRANSFERASE 40 U/L (12-78); ALBUMIN 3.8 g/dL (3.4-5.0); ALKALINE PHOSPHATASE 93 U/L (46-116); ASPARTATE AMINOTRANSFERASE 31 U/L (15-37); BILIRUBIN,TOTAL 0.1 mg/dL (0.1-1.0); TOTAL PROTEIN, SERUM 7.1 g/dL (6.4-8.2)
[2018-04-19 18:07] LABS: AMPHET/METH SCREEN,URINE POSITIVE (NEGATIVE); BARBITURATE SCREEN, URINE NEGATIVE (NEGATIVE); BENZODIAZEPINES SCREEN,URINE NEGATIVE (NEGATIVE); CANNABINOID SCREEN,URINE NEGATIVE (NEGATIVE); COCAINE SCREEN,URINE POSITIVE (NEGATIVE); METHADONE SCREEN, URINE NEGATIVE (NEGATIVE); OPIATE SCREEN,URINE NEGATIVE (NEGATIVE)
[2018-04-19 18:08] LABS: PHENCYCLIDINE SCREEN,URINE NEGATIVE (NEGATIVE)
[2018-04-19 21:34] LABS: PHENYTOIN (DILANTIN) 8.3 mcg/mL (10.0-20.0)
[2018-04-20] VITALS (8 sets, daily range): BP systolic 111–145; BP diastolic 64–88
[2018-04-20] MEDS ORDERED: ZOLPIDEM TARTRATE 10 MG TABLET PO PRN (00:15)
[2018-04-20] MEDS ORDERED: HALOPERIDOL 5 MG TABLET PO PRN (00:15)
[2018-04-20] MEDS ORDERED: LORazepam 2 MG TABLET PO PRN (00:15)
[2018-04-20] MEDS ORDERED: PNEUMOCOCCAL VACCINE POLYVALENT 0.5 ML VIAL [PPSV23] IM ONE (06:30)
[2018-04-20] MEDS ORDERED: CYANOCOBALAMIN 1,000 MCG/ML VIAL IM ONE (11:30)
[2018-04-20] MEDS ORDERED: OLANZapine 5 MG RAPDIS TABLET PO PRN (11:30)
[2018-04-20] MEDS ORDERED: TUBERCULIN, PURIFIED PROTEIN DERIVATIVE 5 TU/0.1 ML SYG ID ONE (11:30)
[2018-04-20] MEDS ORDERED: PROMETHAZINE HCL 25 MG TABLET PO PRN (11:30)
[2018-04-20] MEDS ORDERED: HydrOXYzine PAMOATE 50 MG CAPSULE PO PRN (11:30)
[2018-04-20] MEDS ORDERED: MAGNESIUM HYDROXIDE SUSPENSION 30 ML UDCUP PO PRN (11:30)
[2018-04-20] MEDS ORDERED: GuaiFENesin/D-METHORPHAN [SUGAR-FREE] 200-20MG/10 ML SYRUP UDCUP PO PRN (11:30)
[2018-04-20] MEDS ORDERED: ACETAMINOPHEN 325 MG TABLET PO PRN (11:30)
[2018-04-20] MEDS ORDERED: MAG HYDROX/AL HYDROX/SIMETH ES 30 ML SUSPENSION UDCUP PO PRN (11:30)
[2018-04-20] MEDS ORDERED: LOPERAMIDE HCL 2 MG CAPSULE PO PRN ×2 (11:30)
[2018-04-20] MEDS: GABAPENTIN 300 MG CAPSULE PO SCH ×3 (12:45→20:48)
[2018-04-20] MEDS: THIAMINE HCL 100 MG TABLET PO SCH (16:05)
[2018-04-20] MEDS ORDERED: DiphenhydrAMINE HCL 50 MG/ML VIAL IM ONE (16:45)
[2018-04-20] MEDS ORDERED: BENZTROPINE MESYLATE 2 MG TABLET PO ONE (16:45)
[2018-04-20] MEDS: BENZTROPINE MESYLATE 2 MG TABLET PO SCH (17:00)
[2018-04-20] MEDS: PHENYTOIN SODIUM 100 MG ER CAPSULE PO SCH (20:48)
[2018-04-20] MEDS: TraZODone HCL 50 MG TABLET PO SCH (20:48)
[2018-04-20] MEDS: OLANZapine 5 MG RAPDIS TABLET PO SCH (20:49)
[2018-04-20] MEDS: SIMVASTATIN 10 MG TABLET PO SCH (20:49)
[2018-04-21] VITALS (7 sets, daily range): BP systolic 105–125; BP diastolic 57–74
[2018-04-21 06:47] LABS: CHOL/HDL RATIO 4.8 (4.2-7.3)
[2018-04-21] MEDS: GABAPENTIN 300 MG CAPSULE PO SCH ×4 (08:32→20:20)
[2018-04-21] MEDS: NALTREXONE HCL 50 MG TABLET PO SCH (08:32)
[2018-04-21] MEDS: BENZTROPINE MESYLATE 2 MG TABLET PO SCH ×3 (08:32→16:50)
[2018-04-21] MEDS: MULTIVITAMINS WITH MINERALS, THERAPEUTIC TABLET PO SCH (08:32)
[2018-04-21] MEDS: FOLIC ACID 1 MG TABLET PO SCH (08:33)
[2018-04-21] MEDS: THIAMINE HCL 100 MG TABLET PO SCH ×2 (08:33→16:50)
[2018-04-21] MEDS: PHENYTOIN SODIUM 100 MG ER CAPSULE PO SCH (20:20)
[2018-04-21] MEDS: SIMVASTATIN 10 MG TABLET PO SCH (20:20)
[2018-04-21] MEDS: TraZODone HCL 50 MG TABLET PO SCH (20:20)
[2018-04-21] MEDS: OLANZapine 5 MG RAPDIS TABLET PO SCH (20:21)
[2018-04-22 06:40] VITALS: BP 106/59
[2018-04-22 06:41] VITALS: BP 106/59
[2018-04-22 08:15] VITALS: BP 120/67
[2018-04-22] MEDS: GABAPENTIN 300 MG CAPSULE PO SCH ×4 (08:15→20:16)
[2018-04-22] MEDS: FOLIC ACID 1 MG TABLET PO SCH (08:15)
[2018-04-22] MEDS: MULTIVITAMINS WITH MINERALS, THERAPEUTIC TABLET PO SCH (08:16)
[2018-04-22] MEDS: THIAMINE HCL 100 MG TABLET PO SCH ×2 (08:16→16:43)
[2018-04-22] MEDS: NALTREXONE HCL 50 MG TABLET PO SCH (08:16)
[2018-04-22 13:07] VITALS: BP 111/63
[2018-04-22] MEDS: BENZTROPINE MESYLATE 2 MG TABLET PO SCH (20:15)
[2018-04-22] MEDS: SIMVASTATIN 10 MG TABLET PO SCH (20:16)
[2018-04-22] MEDS: OLANZapine 5 MG RAPDIS TABLET PO SCH (20:16)
[2018-04-22] MEDS: PHENYTOIN SODIUM 100 MG ER CAPSULE PO SCH (20:16)
[2018-04-22] MEDS: TraZODone HCL 50 MG TABLET PO SCH (20:16)
[2018-04-22 21:01] VITALS: BP 101/58
[2018-04-22 21:02] VITALS: BP 101/58
[2018-04-23 05:44] VITALS: BP 103/68
[2018-04-23 09:00] VITALS: BP 93/44
[2018-04-23 09:04] VITALS: BP 93/44
[2018-04-23] MEDS: NALTREXONE HCL 50 MG TABLET PO SCH (10:25)
[2018-04-23] MEDS: THIAMINE HCL 100 MG TABLET PO SCH ×2 (10:25→16:25)
[2018-04-23] MEDS: GABAPENTIN 300 MG CAPSULE PO SCH ×4 (10:25→20:19)
[2018-04-23] MEDS: FOLIC ACID 1 MG TABLET PO SCH (10:25)
[2018-04-23] MEDS: MULTIVITAMINS WITH MINERALS, THERAPEUTIC TABLET PO SCH (10:27)
[2018-04-23 18:46] VITALS: BP 113/75
[2018-04-23 18:47] VITALS: BP 113/75
[2018-04-23] MEDS: PHENYTOIN SODIUM 100 MG ER CAPSULE PO SCH (20:19)
[2018-04-23] MEDS: BENZTROPINE MESYLATE 2 MG TABLET PO SCH (20:19)
[2018-04-23] MEDS: TraZODone HCL 50 MG TABLET PO SCH (20:19)
[2018-04-23] MEDS: SIMVASTATIN 10 MG TABLET PO SCH (20:19)
[2018-04-23] MEDS: OLANZapine 5 MG RAPDIS TABLET PO SCH (20:19)
[2018-04-24 06:11] VITALS: BP 98/71
[2018-04-24 08:11] VITALS: BP 115/78
[2018-04-24] MEDS: FOLIC ACID 1 MG TABLET PO SCH (08:22)
[2018-04-24] MEDS: GABAPENTIN 300 MG CAPSULE PO SCH ×4 (08:22→20:22)
[2018-04-24] MEDS: THIAMINE HCL 100 MG TABLET PO SCH ×2 (08:25→16:31)
[2018-04-24] MEDS: MULTIVITAMINS WITH MINERALS, THERAPEUTIC TABLET PO SCH (08:25)
[2018-04-24] MEDS: NALTREXONE HCL 50 MG TABLET PO SCH (08:25)
[2018-04-24 16:08] VITALS: BP 111/75
[2018-04-24 16:12] VITALS: BP 111/75
[2018-04-24] MEDS ORDERED: NALT50TA PO (16:17)
[2018-04-24] MEDS ORDERED: OLAN5TAB30 PO (16:17)
[2018-04-24] MEDS ORDERED: GABA-531 PO (16:17)
[2018-04-24] MEDS ORDERED: PHENY100 PO (16:17)
[2018-04-24] MEDS ORDERED: TRAZ-219 PO (16:17)
[2018-04-24] MEDS ORDERED: BENZ2TAB10 PO (16:17)
[2018-04-24] MEDS: TraZODone HCL 50 MG TABLET PO SCH (20:21)
[2018-04-24] MEDS: BENZTROPINE MESYLATE 2 MG TABLET PO SCH (20:21)
[2018-04-24] MEDS: PHENYTOIN SODIUM 100 MG ER CAPSULE PO SCH (20:22)
[2018-04-24] MEDS: OLANZapine 5 MG RAPDIS TABLET PO SCH (20:22)
[2018-04-24] MEDS: SIMVASTATIN 10 MG TABLET PO SCH (20:22)
[2018-04-25 06:10] VITALS: BP 107/74
[2018-04-25] MEDS: NALTREXONE HCL 50 MG TABLET PO SCH (08:10)
[2018-04-25] MEDS: FOLIC ACID 1 MG TABLET PO SCH (08:10)
[2018-04-25] MEDS: THIAMINE HCL 100 MG TABLET PO SCH (08:10)
[2018-04-25] MEDS: MULTIVITAMINS WITH MINERALS, THERAPEUTIC TABLET PO SCH (08:10)
[2018-04-25] MEDS: GABAPENTIN 300 MG CAPSULE PO SCH ×2 (08:10→12:07)
[2018-04-25 09:44] VITALS: BP 126/79
[2018-04-25] MEDS ORDERED: BENZ2TAB10 PO (10:35)
[2018-04-25] MEDS ORDERED: NALT50TA6 PO (10:38)
[2018-04-25] MEDS ORDERED: FOLI1 PO (10:39)
[2018-04-25] MEDS ORDERED: MULT-1239 PO (10:40)
[2018-04-25] MEDS ORDERED: THIA100T67 PO (10:40)
== END 2018-04-25 13:50 | disposition home or self-care (01) | DRG 885 ==
LOC: EMS 14:47 → 3EX 04-20 03:30
PROVIDERS: ADMIT Psychiatry & Neurology Psychiatry; ATTEND Psychiatry & Neurology Psychiatry
DX: F25.0 Schizoaffective disorder, bipolar type (principal); R45.851 Suicidal ideations; B19.20 Unspecified viral hepatitis C without hepatic coma; E78.00 Pure hypercholesterolemia, unspecified; E78.5 Hyperlipidemia, unspecified; F14.90 Cocaine use, unspecified, uncomplicated; F15.90 Other stimulant use, unspecified, uncomplicated; G47.00 Insomnia, unspecified; I10 Essential (primary) hypertension; J44.9 Chronic obstructive pulmonary disease, unspecified; R56.9 Unspecified convulsions; Z82.49 Family history of ischemic heart disease and other diseases of the circulatory system; Z87.11 Personal history of peptic ulcer disease; Z88.2 Allergy status to sulfonamides; Z91.19 Patient's noncompliance with other medical treatment and regimen; Z91.013 Allergy to seafood
CPT/HCPCS: 99285; G0480; J1200; J3420

== ENCOUNTER 2018-04-29 14:26 | Inpatient (IN) | payer MEDICARE, OTHER ==
[~2018-04-29] VITALS: Ht 170.2 cm; Wt 59.9 kg
[~2018-04-29 14:26] MED LIST changes: +BENZ2TAB10 PO; +FOLI1 PO; +GABA-531 PO; +MULT-1239 PO; +NALT50TA PO; +NALT50TA6 PO; +OLAN5TAB30 PO; -PARO20TA24 PO; +PHENY100 PO; +THIA100T67 PO; +TRAZ-219 PO
[2018-04-29 15:45] LABS: BASOPHILS % (AUTO) 1.9 % (0.0-2.0); EOSINOPHILS % (AUTO) 5.6 % (1.0-6.0); HEMATOCRIT 41.7 % (41-53); HEMOGLOBIN 14.4 g/dL (13.5-17.5); LYMPHOCYTES # (AUTO) 1.1 K/uL (1.0-4.8); MEAN CORPUSCULAR HEMOGLOBIN 32.6 pg (26.0-34.0); MEAN CORPUSCULAR HGB CONC 34.7 G/dL (31.0-37.0); MEAN CORPUSCULAR VOLUME 94 fL (80-100); MONOCYTES # (AUTO) 0.4 K/uL (0.1-1.0); MONOCYTES % (AUTO) 9.3 % (2.0-9.0); NEUTROPHILS % (AUTO) 53.2 % (40.0-70.0); PLATELET COUNT (AUTO) 189 K/uL (150-450); RED BLOOD CELL COUNT(AUTO) 4.44 MIL/uL (4.50-5.90); RED CELL DISTRIBUTION WIDTH 13.7 % (11.5-14.5)
[2018-04-29 15:55] LABS: ANION GAP 11 mmol/L (8-16); CALCIUM, TOTAL 8.4 mg/dL (8.8-10.5); CARBON DIOXIDE 25 mmol/L (22-29); CHLORIDE 108 mmol/L (98-107); CREATININE 1.12 mg/dL (0.60-1.30); GLOMERULAR FILTR. RATE CALC > 60 mL/min (>60); GLUCOSE,RANDOM 87 mg/dL (70-110); POTASSIUM 3.8 mmol/L (3.5-5.1); SODIUM SERUM 144 mmol/L (136-145); UREA NITROGEN, BLOOD 15 mg/dL (7-18)
[2018-04-29 16:01] LABS: ALANINE AMINOTRANSFERASE 56 U/L (12-78); ALBUMIN 3.7 g/dL (3.4-5.0); ALKALINE PHOSPHATASE 103 U/L (46-116); ASPARTATE AMINOTRANSFERASE 40 U/L (15-37); BILIRUBIN,TOTAL 0.3 mg/dL (0.1-1.0); TOTAL PROTEIN, SERUM 7.2 g/dL (6.4-8.2)
[2018-04-29 16:10] LABS: PHENYTOIN (DILANTIN) 23.4 mcg/mL (10.0-20.0)
[2018-04-29] MEDS ORDERED: HALOPERIDOL 5 MG TABLET PO PRN (20:45)
[2018-04-29] MEDS ORDERED: LORazepam 2 MG TABLET PO PRN (20:45)
[2018-04-29] MEDS ORDERED: ZOLPIDEM TARTRATE 10 MG TABLET PO PRN (20:45)
[2018-04-30 00:35] VITALS: BP 124/80
[2018-04-30] MEDS ORDERED: PNEUMOCOCCAL VACCINE POLYVALENT 0.5 ML VIAL [PPSV23] IM ONE (06:00)
[2018-04-30 08:09] VITALS: BP 112/69
[2018-04-30 08:24] LABS: CHOL/HDL RATIO 3.5 (4.2-7.3)
[2018-04-30] MEDS: GABAPENTIN 300 MG CAPSULE PO SCH ×4 (09:01→20:31)
[2018-04-30] MEDS: FOLIC ACID 1 MG TABLET PO SCH (09:01)
[2018-04-30] MEDS: THIAMINE HCL 100 MG TABLET PO SCH ×2 (09:01→16:28)
[2018-04-30] MEDS: MULTIVITAMINS WITH MINERALS, THERAPEUTIC TABLET PO SCH (09:01)
[2018-04-30] MEDS ORDERED: GABA-531 PO (14:31)
[2018-04-30 16:09] VITALS: BP 105/73
[2018-04-30] MEDS: SIMVASTATIN 10 MG TABLET PO SCH (20:31)
[2018-04-30] MEDS: TraZODone HCL 50 MG TABLET PO SCH (20:32)
[2018-04-30] MEDS: BENZTROPINE MESYLATE 2 MG TABLET PO SCH (20:32)
[2018-04-30] MEDS ORDERED: PHENYTOIN SODIUM 100 MG ER CAPSULE PO SCH (21:00)
[2018-04-30] MEDS ORDERED: OLANZapine 7.5 MG TABLET PO SCH (21:00)
[2018-04-30] MEDS ORDERED: TraZODone HCL 150 MG TABLET PO SCH (21:00)
[2018-05-01 00:39] VITALS: BP 91/61
[2018-05-01] MEDS: GABAPENTIN 300 MG CAPSULE PO SCH ×4 (08:22→21:18)
[2018-05-01] MEDS: PARoxetine HCL 20 MG TABLET PO SCH (08:22)
[2018-05-01] MEDS: MULTIVITAMINS WITH MINERALS, THERAPEUTIC TABLET PO SCH (08:22)
[2018-05-01] MEDS: PANTOPRAZOLE SODIUM 40 MG DR TABLET PO SCH (08:22)
[2018-05-01] MEDS: NALTREXONE HCL 50 MG TABLET PO SCH (08:22)
[2018-05-01] MEDS: THIAMINE HCL 100 MG TABLET PO SCH ×2 (08:22→17:21)
[2018-05-01] MEDS: FOLIC ACID 1 MG TABLET PO SCH (08:22)
[2018-05-01 08:46] VITALS: BP 108/73
[2018-05-01] MEDS ORDERED: MAG HYDROX/AL HYDROX/SIMETH ES 30 ML SUSPENSION UDCUP PO PRN (11:15)
[2018-05-01] MEDS ORDERED: LOPERAMIDE HCL 2 MG CAPSULE PO PRN (11:15)
[2018-05-01] MEDS ORDERED: ACETAMINOPHEN 325 MG TABLET PO PRN (11:15)
[2018-05-01] MEDS ORDERED: PROMETHAZINE HCL 25 MG TABLET PO PRN (11:15)
[2018-05-01] MEDS ORDERED: MAGNESIUM HYDROXIDE SUSPENSION 30 ML UDCUP PO PRN (11:15)
[2018-05-01 16:12] VITALS: BP 107/64
[2018-05-01] MEDS: PHENYTOIN SODIUM 100 MG ER CAPSULE PO SCH (21:16)
[2018-05-01] MEDS: TraZODone HCL 50 MG TABLET PO SCH (21:17)
[2018-05-01] MEDS: OLANZapine 10 MG TABLET PO SCH (21:17)
[2018-05-01] MEDS: BENZTROPINE MESYLATE 2 MG TABLET PO SCH (21:18)
[2018-05-01] MEDS: SIMVASTATIN 10 MG TABLET PO SCH (21:26)
[2018-05-02 06:42] VITALS: BP 104/61
[2018-05-02 08:10] VITALS: BP 104/74
[2018-05-02] MEDS: PANTOPRAZOLE SODIUM 40 MG DR TABLET PO SCH (08:55)
[2018-05-02] MEDS: MULTIVITAMINS WITH MINERALS, THERAPEUTIC TABLET PO SCH (08:55)
[2018-05-02] MEDS: GABAPENTIN 300 MG CAPSULE PO SCH ×4 (08:55→20:34)
[2018-05-02] MEDS: THIAMINE HCL 100 MG TABLET PO SCH ×2 (08:55→16:33)
[2018-05-02] MEDS: PARoxetine HCL 20 MG TABLET PO SCH (08:55)
[2018-05-02] MEDS: FOLIC ACID 1 MG TABLET PO SCH (08:55)
[2018-05-02] MEDS: NALTREXONE HCL 50 MG TABLET PO SCH (08:56)
[2018-05-02 16:14] VITALS: BP 110/71
[2018-05-02] MEDS: BENZTROPINE MESYLATE 2 MG TABLET PO SCH (20:34)
[2018-05-02] MEDS: TraZODone HCL 50 MG TABLET PO SCH (20:35)
[2018-05-02] MEDS: SIMVASTATIN 10 MG TABLET PO SCH (20:35)
[2018-05-02] MEDS: PHENYTOIN SODIUM 100 MG ER CAPSULE PO SCH (20:35)
[2018-05-02] MEDS: OLANZapine 10 MG TABLET PO SCH (20:36)
[2018-05-03 01:34] VITALS: BP 119/65
[2018-05-03 08:00] VITALS: BP 112/70
[2018-05-03] MEDS: GABAPENTIN 300 MG CAPSULE PO SCH ×4 (08:40→20:35)
[2018-05-03] MEDS: FOLIC ACID 1 MG TABLET PO SCH (08:40)
[2018-05-03] MEDS: PANTOPRAZOLE SODIUM 40 MG DR TABLET PO SCH (08:40)
[2018-05-03] MEDS: PARoxetine HCL 10 MG TABLET PO SCH (08:40)
[2018-05-03] MEDS: THIAMINE HCL 100 MG TABLET PO SCH ×2 (08:40→16:29)
[2018-05-03] MEDS: MULTIVITAMINS WITH MINERALS, THERAPEUTIC TABLET PO SCH (08:41)
[2018-05-03] MEDS: NALTREXONE HCL 50 MG TABLET PO SCH (08:41)
[2018-05-03] MEDS ORDERED: PHENY100 PO (16:06)
[2018-05-03] MEDS ORDERED: OLAN10TA20 PO (16:06)
[2018-05-03] MEDS ORDERED: TRAZ-219 PO (16:06)
[2018-05-03] MEDS ORDERED: NALT50TA PO (16:06)
[2018-05-03] MEDS ORDERED: PARO10TA71 PO (16:06)
[2018-05-03] MEDS ORDERED: BENZ2TAB10 PO (16:06)
[2018-05-03] MEDS ORDERED: GABA-531 PO (16:06)
[2018-05-03 16:08] VITALS: BP 103/63
[2018-05-03] MEDS: BENZTROPINE MESYLATE 2 MG TABLET PO SCH (20:35)
[2018-05-03] MEDS: OLANZapine 10 MG TABLET PO SCH (20:35)
[2018-05-03] MEDS: PHENYTOIN SODIUM 100 MG ER CAPSULE PO SCH (20:36)
[2018-05-03] MEDS: SIMVASTATIN 10 MG TABLET PO SCH (20:36)
[2018-05-03] MEDS: TraZODone HCL 50 MG TABLET PO SCH (20:36)
[2018-05-04 06:36] VITALS: BP 102/67
[2018-05-04 08:16] VITALS: BP 110/70
[2018-05-04] MEDS ORDERED: PHEN100C23 PO (08:20)
[2018-05-04] MEDS ORDERED: PARO10TA89 PO (08:20)
[2018-05-04] MEDS ORDERED: PANT40TA25 PO (08:20)
[2018-05-04] MEDS ORDERED: OLAN10TA3 PO (08:20)
[2018-05-04] MEDS: THIAMINE HCL 100 MG TABLET PO SCH (08:36)
[2018-05-04] MEDS: PARoxetine HCL 10 MG TABLET PO SCH (08:36)
[2018-05-04] MEDS: GABAPENTIN 300 MG CAPSULE PO SCH ×2 (08:36→12:18)
[2018-05-04] MEDS: PANTOPRAZOLE SODIUM 40 MG DR TABLET PO SCH (08:36)
[2018-05-04] MEDS: MULTIVITAMINS WITH MINERALS, THERAPEUTIC TABLET PO SCH (08:36)
[2018-05-04] MEDS: FOLIC ACID 1 MG TABLET PO SCH (08:36)
[2018-05-04] MEDS: NALTREXONE HCL 50 MG TABLET PO SCH (08:36)
== END 2018-05-04 13:20 | disposition home or self-care (01) | DRG 885 ==
LOC: EMS 14:28 → B2X 20:30
PROVIDERS: ADMIT Psychiatry & Neurology Psychiatry; ATTEND Psychiatry & Neurology Psychiatry
DX: F25.0 Schizoaffective disorder, bipolar type (principal); R45.851 Suicidal ideations; D72.819 Decreased white blood cell count, unspecified; E78.00 Pure hypercholesterolemia, unspecified; E78.5 Hyperlipidemia, unspecified; F19.90 Other psychoactive substance use, unspecified, uncomplicated; F41.9 Anxiety disorder, unspecified; J44.9 Chronic obstructive pulmonary disease, unspecified; K21.9 Gastro-esophageal reflux disease without esophagitis; R56.9 Unspecified convulsions; Z82.49 Family history of ischemic heart disease and other diseases of the circulatory system; Z87.11 Personal history of peptic ulcer disease; Z88.2 Allergy status to sulfonamides; Z88.8 Allergy status to other drugs, medicaments and biological substances; Z91.013 Allergy to seafood; Z91.19 Patient's noncompliance with other medical treatment and regimen
CPT/HCPCS: 87081; 90471; 99285; G0480

== ENCOUNTER 2019-02-04 22:14 | Emergency (ER) | payer MEDICARE, OTHER, SELFPAY ==
[~2019-02-04] VITALS: Ht 170.2 cm; Wt 60.9 kg
[~2019-02-04 22:14] MED LIST changes: -GABA-529 PO; -MULT-1239 PO; -NALT50TA6 PO; +OLAN10TA20 PO; +OLAN10TA3 PO; -OLAN5TAB30 PO; -OLAN7.5T2 PO; +PANT40TA25 PO; +PARO10TA71 PO; +PARO10TA89 PO; -TRAZ-220 PO
[2019-02-04 22:54] LABS: BASOPHILS % (AUTO) 2.2 % (0.0-2.0); EOSINOPHILS % (AUTO) 4.5 % (1.0-6.0); HEMATOCRIT 42.7 % (41-53); HEMOGLOBIN 14.2 g/dL (13.5-17.5); LYMPHOCYTES # (AUTO) 1.7 K/uL (1.0-4.8); LYMPHOCYTES % (AUTO) 31.6 % (22.0-44.0); MEAN CORPUSCULAR HEMOGLOBIN 30.9 pg (26.0-34.0); MEAN CORPUSCULAR HGB CONC 33.4 G/dL (31.0-37.0); MEAN CORPUSCULAR VOLUME 93 fL (80-100); MONOCYTES # (AUTO) 0.4 K/uL (0.1-1.0); MONOCYTES % (AUTO) 8.4 % (2.0-9.0); NEUTROPHILS # (AUTO) 2.8 K/uL (1.8-7.7); NEUTROPHILS % (AUTO) 53.3 % (40.0-70.0); PLATELET COUNT (AUTO) 214 K/uL (150-450); RED CELL DISTRIBUTION WIDTH 13.8 % (11.5-14.5)
[2019-02-04 22:59] LABS: ANION GAP 13 mmol/L (8-16); CALCIUM, TOTAL 8.9 mg/dL (8.8-10.5); CARBON DIOXIDE 22 mmol/L (22-29); CHLORIDE 108 mmol/L (98-107); GLOMERULAR FILTR. RATE CALC > 60 mL/min (>60); GLUCOSE,RANDOM 101 mg/dL (70-110); POTASSIUM 3.6 mmol/L (3.5-5.1); SODIUM SERUM 143 mmol/L (136-145); UREA NITROGEN, BLOOD 21 mg/dL (7-18)
[2019-02-04 23:05] LABS: ALANINE AMINOTRANSFERASE 57 U/L (12-78); ALBUMIN 3.7 g/dL (3.4-5.0); ALKALINE PHOSPHATASE 135 U/L (46-116); ASPARTATE AMINOTRANSFERASE 32 U/L (15-37); BILIRUBIN,TOTAL 0.2 mg/dL (0.1-1.0); TOTAL PROTEIN, SERUM 7.2 g/dL (6.4-8.2)
[2019-02-04 23:16] LABS: AMPHET/METH SCREEN,URINE NEGATIVE (NEGATIVE); BARBITURATE SCREEN, URINE NEGATIVE (NEGATIVE); BENZODIAZEPINES SCREEN,URINE NEGATIVE (NEGATIVE); CANNABINOID SCREEN,URINE NEGATIVE (NEGATIVE); COCAINE SCREEN,URINE NEGATIVE (NEGATIVE); METHADONE SCREEN, URINE NEGATIVE (NEGATIVE); OPIATE SCREEN,URINE NEGATIVE (NEGATIVE); PHENCYCLIDINE SCREEN,URINE NEGATIVE (NEGATIVE)
[2019-02-05] MEDS ORDERED: ZOLPIDEM TARTRATE 10 MG TABLET PO PRN (02:30)
[2019-02-05] MEDS ORDERED: LORazepam 2 MG TABLET PO PRN (02:30)
[2019-02-05] MEDS ORDERED: HALOPERIDOL 5 MG TABLET PO PRN (02:30)
[2019-02-05 15:05] VITALS: BP 119/67
== END 2019-02-05 17:03 | disposition home or self-care (01) ==
LOC: EMS 22:17
DX: F20.9 Schizophrenia, unspecified (principal); F22 Delusional disorders; F41.9 Anxiety disorder, unspecified; E78.00 Pure hypercholesterolemia, unspecified; J44.9 Chronic obstructive pulmonary disease, unspecified; F15.90 Other stimulant use, unspecified, uncomplicated; Z88.1 Allergy status to other antibiotic agents; Z79.899 Other long term (current) drug therapy
CPT/HCPCS: 36415; 80053; 80307; 85025; 99284; G0480

== ENCOUNTER 2019-05-25 21:19 | Emergency (ER) | payer MEDICARE ==
[~2019-05-25 21:19] MED LIST changes: -TRAZ-219 PO; +TRAZ-252 PO
== END 2019-05-25 21:30 | disposition left against medical advice (07) ==
LOC: EMS 21:20
DX: R40.4 Transient alteration of awareness (principal); Z53.21 Procedure and treatment not carried out due to patient leaving prior to being seen by health care provider